=== PATIENT | female | born 1970 | race Caucasian/White ===

== ENCOUNTER 2016-11-19 14:29 | Outpatient (CLI) | payer MEDICARE, MEDICAID ==
[2016-11-19 16:02] LABS: ABG BASE EXCESS -8.2 MMOL/L (-2.5-2.5); ABG OXYGEN SATURATION 98 % (94-100); ABG PCO2 35 MMHG (35-45); ABG PO2 96 MMHG (79-93)
[2016-11-19 16:04] LABS: ABG HCO3 17 MMOL/L (23-27); ALLENS TEST POSITIVE; PATIENT TEMP 98.5
--- NOTE | 2016-11-19 16:59 | Progress Note-Standard ---
Standard Progress Note Progress Notes/Assess & Plan Date Seen 11/19/16 Time Seen by Provider: 16:35 Assess & Plan/Chief Complaint Brought over by wheelchair from lab for abnormal lab value. Apparently the patient had an ABG drawn that had an abnormality. This was called to the office of Dr. Olivares who is out of town. The nurse practitioner recommended evaluation in the ER due to concerns for metabolic acidosis. The patient was then brought to the ER. She apparently had more labs to be drawn. I did discuss with her about checking in so she could be evaluated for this concern. The ABG apparently had bicarbonate level of 17 and pH of 7.30. I did discuss with the patient about checking in to be evaluated and offered my services as well as further evaluation with laboratory studies and other testing as indicated. Patient states she really did not want to be seen and does not feel different than previous except for where she was stuck by lab for the ABGs. She does not want to be seen in the ER just wants lab to continue the lab draw that she was supposed to get for Dr. Olivares. She states that she has appointment with him next week and will just follow up with him. She was again offered evaluation in the ER and patient declined. Dr. Olivares informed. Patient instructed to return for any concerns including the desire to be further evaluated. Patient verbalize agreement as well as significant other male that was with her. JULIA CANALES MD Nov 19, 2016 16:59
[2016-11-20 23:57] LABS: IGE DETAIL 21.7 IU/mL
[2016-11-21 06:50] LABS: INT IGE See Footnote
== END 2016-11-19 14:40 ==
LOC: RT 14:29 → SLEEP 14:51
PROVIDERS: ATTEND Nurse Practitioner Family
DX: J45.909 Unspecified asthma, uncomplicated (principal); J42 Unspecified chronic bronchitis; R06.00 Dyspnea, unspecified; G47.50 Parasomnia, unspecified; G47.33 Obstructive sleep apnea (adult) (pediatric); G47.10 Hypersomnia, unspecified
CPT/HCPCS: 36415; 82784; 82785; 82805; 86003